=== PATIENT | male | born 2000 | race Caucasian/White ===

== ENCOUNTER 2024-02-11 16:24 | Emergency (ER) | payer BC, SELFPAY ==
[2024-02-11 16:35] VITALS: BP 142/88
[2024-02-11 17:16] LABS: % Basophils 0.4 % (0-2); % Eosinophils 2.1 % (0-6); % Immature Granulocytes 0.4 % (0-0.5); % Lymphocytes 28.9 % (20.5-51.1); % Monocytes 8.3 % (1.7-9.3); % Neutrophils 59.9 % (42.2-75.2); Absolute Eosinophils 0.2 10^3/uL (0-0.7); Absolute Lymphocytes 3.1 10^3/uL (1.2-3.4); Absolute Monocytes 0.9 10^3/uL (0.1-0.6); Absolute Neutrophils 6.4 10^3/uL (1.4-6.5); Hematocrit 43.5 % (39.0-52.0); Hemoglobin 14.9 g/dL (13.0-18.0); Mean Corp Hgb Conc. 34.3 g/dL (33.0-37.0); Mean Corpuscular Hgb 30.1 pg (27.0-31.0); Mean Corpuscular Volume 87.9 fL (80.0-94.0); Nucleated Red Blood Cells % 0 % (-); Platelet Count 223 10^3/uL (130-400); Red Blood Cell Count 4.95 10^6/uL (4.70-6.10); White Blood Cell Count 10.7 10^3/uL (4.8-10.8)
[2024-02-11 17:18] LABS: Urine Albumin Negative (Neg - Trace); Urine Bilirubin Negative (Negative); Urine Character Clear (Clear); Urine Color Straw; Urine Glucose Negative (Negative); Urine Ketone Negative (Negative); Urine Leukocyte Negative (Negative); Urine Nitrite Negative (Negative); Urine Occult Blood 3+ (Negative); Urine Urobilinogen Negative (Neg - 1+)
[2024-02-11 17:31] LABS: Urine Bacteria Few (Negative); Urine Red Blood Cell 16-20 /HPF (0-2); Urine Squamous Cell 0-2 /LPF (Few); Urine White Cell 0-2 /HPF (0-5)
[2024-02-11 17:47] LABS: ALT (SGPT) 31 U/L (0-50); AST (SGOT) 31 U/L (17-59); Albumin 4.9 g/dl (3.5-5.0); Alkaline Phosphatase 99 U/L (38-126); Blood Urea Nitrogen 23 mg/dl (9-20); Calcium 12.3 mg/dl (8.4-10.2); Carbon Dioxide 25 mmol/L (22-30); Chloride 104 mmol/L (98-107); Glucose 89 mg/dl (70-99); Potassium 3.8 mmol/L (3.5-5.1); Sodium 136 mmol/L (135-145); Total Bilirubin 0.7 mg/dl (0.2-1.3); Total Protein 7.2 g/dl (6.3-8.2); eGFR > 60.00
--- NOTE | 2024-02-11 18:24 | ED.GENMED ---
History of Present Illness
General
Chief Complaint: Flank Pain
Source: patient and family
Time Seen by Provider: 02/11/24 18:11
Travel History
Have you had any contact with someone who has COVID-19?: No
Do you have any symptoms of coronavirus? Fever > 100 degrees, chills, cough, shortness of breath, sore throat, loss of taste or smell, muscle aches, or headache?: No
History of Present Illness
History of Present Illness:
24-year-old male with no significant past medical history presenting the emergency department for evaluation with mother for evaluation after he experienced sudden onset right-sided flank pain earlier this morning, pain has been intermittently
radiating around from the flank towards the right lower abdomen and testicle associated with urinary frequency and urgency. Patient also endorses some mild nausea but no vomiting or fevers. Denies any history of similar. Did not attempt any
medications prior to arrival. He is otherwise denying any hematuria, dysuria, bowel changes, testicular edema, urethral discharge or any other concerns.
Past History
Past History
ED Past Medical History: None
ED Past Surgical History: Tonsilectomy
Social History
Tobacco: Smoker
Alcohol: None
Drug: None
Personal: Single
Living: with family
Review of Systems
Review of Systems
All Other Systems: ROS reviewed and negative except as documented in HPI and ROS
Phy Exam
Physical Exam
Physical Exam:
GENERAL: Alert , appears uncomfortable, pacing in room
EYE: clear conjunctiva b/l
HEAD: NCAT
ENT: o/p clr, mmm.
CARDIAC: Regular rate and rhythm .
LUNGS: Clear breath sounds bilaterally, no acute respiratory distress, no wheezes/rales/rhonchi
ABDOMEN: Soft, without focal tenderness, no r/g, moderate right CVA tenderness
Genitourinary: No testicular tenderness or edema. Positive cremasteric reflex bilateral. No hernia or mass appreciated
NEUROLOGICAL: Alert and oriented
SKIN: Warm and dry, skin intact.
MUSCULOSKELETAL: No edema, well perfused.
PSYCH: Normal and appropriate interaction.
Scores
Heart Failure Risk
Heart Failure Risk Score: Not Applicable
Heart Score for Chest Pain Patients
STEMI patient?: Not applicable
Withdrawal Assessment of Alcohol
Withdrawal Assessment Completed?: Not applicable
Course
Orders/Labs/Results
Orders:
Orders
02/11/24 16:59
CMP [Comprehensive Metabolic Panel] Urgent
Complete Blood Count/With Diff Urgent
Urinalysis Reflex To Culture Urgent
Date Specimen was Collected: 02/11/24
Time Specimen was Collected: 16:42
Urine Microscopic Reflex Cult Urgent
02/11/24 18:11
CT Abd/pel Without Iv Or Oral Urgent
Comment:
Reason For Exam: right flank pain, microscopic hematuria
02/11/24 18:23
0.9% Sodium Chloride 1000 ml [Nss] 1,000 ml IV BOLUS
Ketorolac [Toradol] 30 mg IV NOW STA
Ondansetron Injectable [Zofran] 4 mg IV NOW STA
02/11/24 19:29
Oxycodone/Acetaminophen [Percocet 5/325] 1 tablet PO NOW STA
02/11/24 19:31
Tamsulosin [Flomax] 0.4 mg PO NOW STA
Abnormal Lab Results
02/11/24
16:59
Absolute Monos (auto) 0.9 H 10^3/uL
(0.1-0.6)
BUN 23 H mg/dl
(9-20)
Creatinine 1.4 H mg/dL
(0.7-1.3)
Calcium 12.3 H mg/dl
(8.4-10.2)
Ur Occult Blood Reflex 3+ A
(Negative)
Urine RBC 16-20 A /HPF
(0-2)
Urine Bacteria (Reflex) Few A
(Negative)
02/11/24 16:59
02/11/24 16:59
Vital Signs
Initial and Last Documented VS:
Initial Vital Signs
Temp Pulse Resp BP Pulse Ox
98.1 F 74 18 142/88 100
02/11/24 16:35 02/11/24 16:35 02/11/24 16:35 02/11/24 16:35 02/11/24 16:35
Last Documented Vital Signs
Temp Pulse Resp BP Pulse Ox
98.1 F 74 18 142/88 100
02/11/24 16:35 02/11/24 16:35 02/11/24 16:35 02/11/24 16:35 02/11/24 16:35
MDM/Problems Addressed
Differential Diagnosis Includes:
Renal/ureteral colic, cystitis, pyelonephritis, muscular etiology, I do not have concern for torsion
MDM/Problems Addressed:
24-year-old male presenting emergency department for evaluation of sudden onset right-sided flank pain, pain now radiating from the right flank into the right groin/testicular region. Will treat pain with Toradol, Zofran and fluids. Labs and urine
have been initiated in triage which shows hematuria. Patient does have a very mild SOFY. CT of the abdomen pelvis ordered. Reassessment following
*Radiology
Radiology exam reviewed: radiology read reviewed
*Pulse Oximetry
Patient hypoxic: no
*Critical Care Note
Total Time (30-74mins, 75-104mins- exclusive of procedures): Not Applicable
Patient Management
Escalation/DeEscalation of care consider admission/obs:
Patient notes improved pain albeit still mildly present. Additional Percocet and Flomax was ordered. CT scan findings as below:
IMPRESSION:
1. MILD to MODERATE ACUTE RIGHT HYDROURETERONEPHROSIS secondary to a 4.7 mm obstructing calculus at the right ureterovesical junction.
2. Mild splenomegaly.
Patient feels comfortable being discharged home. Prescriptions for, Percocet and Flomax were sent to patient's pharmacy. Information for urology was provided. Aware of return precautions to the emergency department. Patient is otherwise stable
for discharge home.
ED Attending Note
-
Portions of this chart may have been created with voice recognition software.� Occasional wrong word or��sound alike� substitutions may have occurred due to the inherent limitations of voice recognition software.
Discharge Plan
Departure
Patient Disposition: Home (Routine Discharge)
Date of Disposition: 02/11/24
Time of Disposition: 19:29
Patient with high blood pressure during this ER visit?: Yes
Discharge Problem:
Ureterolithiasis
Instructions: Kidney Stones (DC)
Prescriptions:
New
naproxen 500 mg tablet
500 mg PO BID PRN (Reason: Pain) Qty: 20 0RF
oxycodone-acetaminophen [Percocet] 5-325 mg tablet
1 tab PO Q6HPRN PRN (Reason: pain) Qty: 8 0RF
tamsulosin [Flomax] 0.4 mg capsule
0.4 mg PO DAILY Qty: 10 0RF
Referrals:
Piyush Mendez MD [Family Provider] -
Nicho Goodwin MD [Active] - (Call for appointment)
Interventions
Interventions:
*General Assessment Last Done: 02/11/24 16:37
*ED COVID-19 Vaccine History Last Done: 02/11/24 16:37
Discharge Date and Time
Print Language: TURKISH
[2024-02-11] MEDS: NSS 1000 IV (18:30)
[2024-02-11] MEDS: TORADOL 30 MG IV (18:31)
[2024-02-11] MEDS: ZOFRAN 4 MG IV (18:31)
[2024-02-11] MEDS: PERCOCET 5/325 1 TABLET PO (19:55)
[2024-02-11] MEDS: FLOMAX 0.400000000000000022 MG PO (19:55)
== END 2024-02-11 20:35 | disposition home or self-care (01) ==
LOC: EMR 16:24
PROVIDERS: EMERGENCY PHYSICIAN Emergency Medicine; FAMILY PHYSICIAN Family Medicine
DX: N13.2 Hydronephrosis with renal and ureteral calculous obstruction (principal); R11.0 Nausea; N17.9 Acute kidney failure, unspecified; R03.0 Elevated blood-pressure reading, without diagnosis of hypertension; F17.200 Nicotine dependence, unspecified, uncomplicated
CPT/HCPCS: 99284; 96374; 96375; 96361; 74176; 80053; 81003; 81015; 85025